=== PATIENT | female | born 1955 | race Two or more races ===

== ENCOUNTER 2018-09-08 14:07 | Emergency (ER) | payer OTHER ==
[~2018-09-08] VITALS: Ht 149.9 cm; Wt 76.2 kg
[~2018-09-08 14:07] MED LIST: CIPRO500 MG PO; PEPCID40 MG PO; ZOFRAN4 MG PO
== END 2018-09-08 19:56 | disposition home or self-care (01) ==
LOC: ER 14:07 → CPU-OBS 14:43 → ER 19:56
DX: R07.89 Other chest pain (principal)
CPT/HCPCS: G0378; G0379; 93005

== ENCOUNTER 2019-10-23 19:04 | Emergency (ER) | payer OTHER ==
[~2019-10-23] VITALS: Ht 147.3 cm; Wt 78.9 kg
[2019-10-23] MEDS ORDERED: SYNTHROID50 MCG PO (20:01)
[2019-10-23] MEDS ORDERED: ZESTRIL10 M1 PO (20:02)
[2019-10-23] MEDS ORDERED: ATORVASTATIN CA40 MG PO (20:02)
== END 2019-10-23 20:47 | disposition home or self-care (01) ==
LOC: ER 19:04
DX: M79.7 Fibromyalgia (principal)

== ENCOUNTER 2020-01-22 14:17 | Emergency (ER) | payer OTHER ==
[~2020-01-22] VITALS: Ht 147.3 cm; Wt 78.5 kg
[~2020-01-22 14:17] MED LIST changes: +ATORVASTATIN CA40 MG PO; +SYNTHROID50 MCG PO; +ZESTRIL10 M1 PO
[2020-01-22] MEDS ORDERED: NABUMETONE500 MG PO (14:54)
== END 2020-01-22 15:22 | disposition home or self-care (01) ==
LOC: ER 14:17
DX: M75.51 Bursitis of right shoulder (principal)

== ENCOUNTER 2020-07-25 12:11 | Emergency (ER) | payer OTHER ==
[~2020-07-25] VITALS: Ht 147.3 cm; Wt 74.8 kg
[~2020-07-25 12:11] MED LIST changes: +NABUMETONE500 MG PO
[2020-07-25] MEDS ORDERED: DICLOFENAC SODI75 MG PO (13:28)
[2020-07-25] MEDS ORDERED: CODE1TAB37 PO (13:28)
[2020-07-25] MEDS ORDERED: MONTELUKAST SOD10 MG PO (13:29)
== END 2020-07-25 14:45 | disposition home or self-care (01) ==
LOC: ER 12:11
DX: M54.2 Cervicalgia (principal); M62.838 Other muscle spasm

== ENCOUNTER 2021-03-01 18:05 | Emergency (ER) | payer OTHER ==
[~2021-03-01] VITALS: Ht 147.3 cm; Wt 78.0 kg
[~2021-03-01 18:05] MED LIST changes: +CODE1TAB37 PO; +DICLOFENAC SODI75 MG PO; +MONTELUKAST SOD10 MG PO
[2021-03-01] MEDS ORDERED: NORFLEX100MG PO (22:06)
[2021-03-01] MEDS ORDERED: KETO10TA2 PO (22:06)
== END 2021-03-01 22:56 | disposition home or self-care (01) ==
LOC: ER 18:05
DX: M94.0 Chondrocostal junction syndrome [Tietze] (principal)

== ENCOUNTER → 2021-09-20 | Emergency (ER) | payer OTHER ==
[~2021-09-20] VITALS: Ht 147.3 cm; Wt 77.1 kg
[~2021-09-20] MED LIST changes: +COZAAR50 MG PO; +KETO10TA2 PO; +NORFLEX100MG PO; +ZOCOR20 MG PO
== END | disposition home or self-care (01) ==
LOC: ER 18:47
DX: S49.91XA Unspecified injury of right shoulder and upper arm, initial encounter (principal); S69.91XA Unspecified injury of right wrist, hand and finger(s), initial encounter; V49.88XA Car occupant (driver) (passenger) injured in other specified transport accidents, initial encounter; Y93.89 Activity, other specified; Y92.413 State road as the place of occurrence of the external cause

== ENCOUNTER → 2021-09-22 | Outpatient (CLI) | payer OTHER | END | disposition home or self-care (01) | LOC: RAD 13:25 | PROVIDERS: ATTEND General Practice | DX: M06.4 Inflammatory polyarthropathy (principal); S40.011A Contusion of right shoulder, initial encounter ==

== ENCOUNTER 2021-12-29 14:58 | Emergency (ER) | payer OTHER ==
[~2021-12-29] VITALS: Ht 154.9 cm; Wt 82.6 kg
[2021-12-29] MEDS ORDERED: CIPRO500 MG PO ×2 (21:54→22:02)
[2021-12-29] MEDS ORDERED: METRONIDAZOLE500 MG PO ×2 (21:54→22:02)
[2021-12-29] MEDS ORDERED: INTESTINEX680 M1 PO (22:02)
== END 2021-12-29 22:04 | disposition home or self-care (01) ==
LOC: ER 14:58
DX: N39.0 Urinary tract infection, site not specified (principal); N76.0 Acute vaginitis; B96.89 Other specified bacterial agents as the cause of diseases classified elsewhere

== ENCOUNTER 2022-01-28 18:40 | Emergency (ER) | payer OTHER ==
[~2022-01-28] VITALS: Ht 147.3 cm; Wt 77.1 kg
[~2022-01-28 18:40] MED LIST changes: +INTESTINEX680 M1 PO; +METRONIDAZOLE500 MG PO
[2022-01-28] MEDS ORDERED: ZOVIRAX800 MG PO (22:22)
[2022-01-28] MEDS ORDERED: GABAPENTIN300 M2 PO (22:22)
== END 2022-01-28 22:31 | disposition home or self-care (01) ==
LOC: ER 18:40
DX: B02.9 Zoster without complications (principal); B02.29 Other postherpetic nervous system involvement

== ENCOUNTER 2022-02-15 11:33 | Emergency (ER) | payer OTHER ==
[~2022-02-15] VITALS: Ht 147.3 cm; Wt 77.1 kg
[~2022-02-15 11:33] MED LIST changes: +GABAPENTIN300 M2 PO; +ZOVIRAX800 MG PO
== END 2022-02-15 12:41 | disposition home or self-care (01) ==
LOC: ER 11:33
DX: B02.23 Postherpetic polyneuropathy (principal)